=== PATIENT | male | born 1960 | race African-American/Black ===

== ENCOUNTER 2018-10-01 18:50 | Observation (INO) ==
[2018-10-01] MEDS ORDERED: 0.9 % Sodium Chloride 1,000 ML IVC ONE (19:15)
[2018-10-01] MEDS ORDERED: Prochlorperazine 10 MG/2 ML VIAL IVP STA (19:15)
[2018-10-01 20:05] LABS: Basophils % 0.3 %; Eosinophils # 0.1 K/mcL (0.0-0.6); Eosinophils % 0.8 %; Hematocrit 39.2 % (37.5-50.1); Hemoglobin 13.3 g/dL (12.9-16.9); Immature Granulocytes % 0.2 % (0-4); Lymphocytes # 3.1 K/mcL (0.6-4.6); Lymphocytes % 50.1 %; Mean Corpuscular HGB Conc 33.9 g/dL (31.6-35.5); Mean Corpuscular Hemoglobin 28.7 pg (28.0-33.3); Mean Corpuscular Volume 84.5 fL (83.0-100.0); Monocytes # 0.5 K/mcL (0.0-1.3); Monocytes % 7.8 %; Neutrophils # 2.5 K/mcL (1.6-8.9); Platelet Count 196 K/mcL (140-400); Red Blood Count 4.64 M/mcL (4.19-5.50); Red Cell Distribution Width 14.3 % (11.5-14.5); Segmented Neutrophils % 40.8 %; White Blood Count 6.2 K/mcL (4.3-11.1)
[2018-10-01 20:14] LABS: INR 1.2; Prothrombin Time 13.3 Seconds (9.4-12.1)
[2018-10-01 20:16] LABS: Activated Partial Thrombo Time 29.2 Seconds (26.0-36.0)
[2018-10-01 20:25] LABS: Albumin/Globulin Ratio 1.7 (1.1-2.2); Bilirubin,Direct 0.2 mg/dL (0.0-0.2); Bilirubin,Indirect 0.8 mg/dL (0.0-1.2); Globulin 2.4 g/dL (2.4-3.5); Magnesium 2.4 mg/dL (1.6-2.6); Phosphorous 3.6 mg/dL (2.7-4.5); Total Protein 6.4 g/dL (6.4-8.9)
[2018-10-01 21:07] LABS: BUN/Creatinine Ratio 14 (6-26); Blood Urea Nitrogen 17 mg/dL (6-20); Calcium 8.9 mg/dL (8.6-10.3); Carbon Dioxide 20 mEq/L (23-29); Chloride 113 mEq/L (98-107); Glucose 112 mg/dL (70-105); Osmolality,Calculated 298 (280-300); Potassium 3.8 mEq/L (3.5-5.1); Sodium 143 mEq/L (136-145); Troponin I < 0.03 ng/mL (< 0.04); eGFR For African Americans > 60 (> 60); eGFR For Non-African Americans > 60 (> 60)
[2018-10-02] MEDS ORDERED: Naloxone 0.4 MG/ML INJ IVP PRN (00:16)
[2018-10-02] MEDS ORDERED: *HR* LORazepam 2 MG/ML VIAL IVP PRN ×3 (00:32)
[2018-10-02] MEDS ORDERED: Ondansetron 4 MG/2 ML VIAL IVP PRN (00:32)
[2018-10-02 02:02] LABS: Basophils % 0.5 %; Eosinophils % 1.1 %; Hematocrit 37.9 % (37.5-50.1); Hemoglobin 12.7 g/dL (12.9-16.9); Immature Granulocytes % 0.2 % (0-4); Lymphocytes % 51.5 %; Mean Corpuscular HGB Conc 33.5 g/dL (31.6-35.5); Mean Corpuscular Hemoglobin 28.4 pg (28.0-33.3); Mean Corpuscular Volume 84.8 fL (83.0-100.0); Mean Platelet Volume 10.3 fL (9.4-12.4); Monocytes % 7.6 %; Platelet Count 166 K/mcL (140-400); Red Blood Count 4.47 M/mcL (4.19-5.50); Red Cell Distribution Width 14.5 % (11.5-14.5); Segmented Neutrophils % 39.1 %; White Blood Count 6.2 K/mcL (4.3-11.1)
[2018-10-02 02:03] LABS: Eosinophils # 0.1 K/mcL (0.0-0.6); Lymphocytes # 3.2 K/mcL (0.6-4.6); Monocytes # 0.5 K/mcL (0.0-1.3); Neutrophils # 2.4 K/mcL (1.6-8.9)
[2018-10-02 02:12] LABS: INR 1.1
[2018-10-02 02:15] LABS: Activated Partial Thrombo Time 28.2 Seconds (26.0-36.0)
[2018-10-02 02:16] LABS: Alanine Aminotransferase 37 Units/L (7-52); Albumin 3.7 g/dL (3.5-5.7); Albumin/Globulin Ratio 1.7 (1.1-2.2); Alkaline Phosphatase 61 Units/L (34-104); Aspartate Amino Transferase 52 Units/L (13-39); BUN/Creatinine Ratio 16 (6-26); Blood Urea Nitrogen 18 mg/dL (6-20); Calcium 8.3 mg/dL (8.6-10.3); Carbon Dioxide 23 mEq/L (23-29); Chloride 110 mEq/L (98-107); Chol/HDL Ratio 4.9 (0-4.9); Cholesterol 186 mg/dL (< 200); Ethanol 96 mg/dL (Less than 10); Globulin 2.2 g/dL (2.4-3.5); Glucose 84 mg/dL (70-105); HDL Cholesterol 38 mg/dL (40-59); Magnesium 2.2 mg/dL (1.6-2.6); Osmolality,Calculated 293 (280-300); Potassium 3.7 mEq/L (3.5-5.1); Sodium 141 mEq/L (136-145); Total Protein 5.9 g/dL (6.4-8.9); Triglycerides 606 mg/dL (< 150); eGFR For African Americans > 60 (> 60); eGFR For Non-African Americans > 60 (> 60)
[2018-10-02 06:25] LABS: Amphetamine Screen,Urine Negative ng/mL (Cutoff=1000); Barbiturate Screen,Urine Negative ng/mL (Cutoff=200)
[2018-10-02 06:26] LABS: Benzodiazepines Screen,Urine Negative ng/mL (Cutoff=300); Cannabinoid Screen,Urine Negative ng/mL (Cutoff = 50); Cocaine Screen,Urine Negative ng/mL (Cutoff= 300); Opiate Screen,Urine Negative ng/mL (Cutoff=300); Phencyclidine Screen,Urine Negative ng/mL (Cutoff=25)
[2018-10-02 06:29] LABS: Bilirubin,Urine Negative (Negative); Blood,Urine Negative (Negative); Clarity,Urine Clear (Clear); Color,Urine Yellow (Yellow); Glucose,Urine (UA) Normal (Normal); Ketones,Urine Negative (Negative); Leukocyte Esterase,Urine Negative (Negative); Nitrite,Urine Negative (Negative); PH,Urine 5.5 pH Units (5.0-8.0); Protein,Urine Negative (Neg-Trace); Specific Gravity,Urine 1.018 (1.010-1.025); Urobilinogen,Urine Normal (Normal)
[2018-10-02 06:36] VITALS: BP 132/73
[2018-10-02] MEDS ORDERED: Folic Acid 1 MG TABLET PO SCH (09:00)
[2018-10-02] MEDS ORDERED: Thiamine (B-1) 100 MG TABLET PO SCH (09:00)
[2018-10-02] MEDS ORDERED: Vitamin B Complex/Vit C/Vit E 1 EACH TABLET PO SCH (09:00)
[2018-10-02] MEDS ORDERED: Thiamine (B-1) 100 MG, Folic Acid 1 MG, MVI, adult with vitamin K 10 ML in 0.9 % Sodi... IVPB SCH (18:00)
== END 2018-10-02 16:14 | disposition home or self-care (01) ==
LOC: 3BNU 18:50 → EMEROOARM 18:50 → SUATTDRO 22:47 → 3BNU 23:00
PROVIDERS: ADMIT Internal Medicine Nephrology; ATTEND Family Medicine